=== PATIENT | male | born 2000 | race Caucasian/White ===

== ENCOUNTER 2023-10-28 19:52 | Emergency (ER) | payer BC, SELFPAY ==
[2023-10-28 20:16] VITALS: BP 109/75; PULSE 81; RESP 16; TEMP 36.1; O2SAT 98; BMI 27.0
--- NOTE | 2023-10-28 20:23 | ED_ITS ---
HPI - General Adult General Chief complaint: Animal Bite Stated complaint: scratch from a wild rabbit Time Seen by Provider: 10/28/23 20:23 Source: patient Mode of arrival: ambulatory Limitations: no limitations History of Present Illness HPI narrative: Patient is a 22 year old assigned female at , now non-binary, with no reported medical history presenting to the emergency department today with possible rabies exposure. Patient states that they found a rabbit that had been attacked by something and attempted to help it. They noticed that when they cleaned their hands of the rabbit blood, they had a small wound to the right dorsal hand that they are concerned got blood into it. Patient states that they are up to date on tetanus. Patient denies any dizziness, lightheadedness, abdominal pain, nausea, vomiting, fever, chills, blurry vision, double vision, loss of vision, chest pain, difficulty breathing, shortness of breath, back pain, night sweats, pain with urination, increased urinary frequency, increased urinary urgency, blood in their urine or stool, syncope or a near syncopal episode, bowel incontinence, bladder incontinence, bowel retention, bladder retention, or any other complaints at this time. Location: right and upper extremity Severity: mild Relieving factors: none Exacerbating factors: none Associated symptoms: denies other symptoms Treatments prior to arrival: none Related Data Previous Rx's ?Medication ?Instructions ?Recorded doxycycline hyclate 100 mg tablet 100 mg PO BID 7 days #14 tabs 10/28/23 Allergies Allergy/AdvReac Type Severity Reaction Status Date / Time Cephalosporins Allergy Hives Verified 10/28/23 20:17 Penicillins Allergy Hives Verified 10/28/23 20:17 Review of Systems 2 Constitutional: Constitutional: Reports no additional constitutional complaints, Denies chills, Denies fever(s) and Denies night sweats Eyes: Eyes: Reports no additional eye complaints, Denies blurry vision, Denies change in vision, Denies diplopia, Denies eye discharge, Denies loss of vision and Denies eye pain ENT: Denies dizziness Cardiovascular: Cardiovascular: Reports no additional cardiovascular complaints, Denies chest pain, Denies lightheadedness, Denies Loss of Consciousness and Denies dyspnea Respiratory: Respiratory: Reports no additional respiratory complaints and Denies dyspnea Gastrointestinal: Gastrointestinal: Reports no additional gastrointestinal complaints, Denies abdominal pain, Denies melena, Denies hematochezia, Denies change in bowel habits and Denies change in stool character Genitourinary: Genitourinary: Reports no additional male genitourinary complaints, Denies hematuria, Denies oliguria, Denies difficulty urinating, Denies dysuria, Denies urinary frequency, Denies urinary hesitancy, Denies urinary incontinence and Denies urinary urgency Musculoskeletal: Musculoskeletal: Reports no additional musculoskeletal complaints, Denies numbness and Denies tingling Comments: right dorsal hand wound Neurologic: Denies dizziness, Denies loss of vision, Denies numbness and Denies tingling Psychiatric: Psychiatric: Reports no additional psychiatric complaints Endocrine: Endocrine: Reports no additional endocrine complaints Hematologic/Lymphatic: Hematologic/Lymphatic: Reports no additional hematologic/lymphatic complaints Allergic/Immunologic: Allergic/Immunologic: Reports no additional allergic/immunologic complaints PMFSH Past Medical History Attestation statement: The following information was validated with the patient. Source: old records reviewed and nursing notes reviewed Social History Social History Advance Directives: No Advance Directives Information Provided: No Do you have a plan to hurt others: No Plan Physical Exam ED Vital Signs: Vital Signs - 24 hr 10/28/23 20:16 10/28/23 20:45 Temperature 97.0 F 97.8 F Pulse Rate 81 80 Respiratory Rate 16 18 Blood Pressure 109/75 110/76 Pulse Oximetry 98 98 Oxygen Delivery Method Room Air Room Air BMI result Body Mass Index 27.0 Const General: cooperative, no acute distress, alert and awake Nutritional Appearance: well nourished Orientation/consciousness: patient oriented x3 Limitations: no limitations [facility] Head: Yes normal to inspection and Yes atraumatic Ears: hearing grossly normal bilaterally and external ears normal General nose exam: Normal external nose present, no nasal discharge noted and no epistaxis Face and sinus: Yes normal facial exam, No abrasion and No laceration Mouth: Normal oral and palatal mucosa present, no drooling and no muffled voice Eyes General: appearance normal, both eyes and all related structures Periorbital: periorbital findings normal Eyelids: Yes eyelids normal Conjunctivae: conjunctivae normal Pupils: Equal, round and reactive pupils present EOM: EOMs intact bilaterally Neck Neck: Yes normal visual inspection, Yes full ROM and Yes no lymphadenopathy Chest Chest palpation & inspection: normal inspection of the chest Resp Effort & Inspection: normal respiratory effort and able to speak in complete sentences GI Inspection: Yes normal to inspection Neuro General: patient oriented x3 and moves all extremities Cranial nerves: Yes Equal, round and reactive pupils present Cognition (Neuro): normal cognition Motor exam (neuro): 5/5 motor strength present throughout Sensory Exam: Normal double simultaneous stimulation for sensation Coordination: [id number] test normal Extrem General: Yes full ROM and Yes capillary refill normal Hand/finger images: 2 1. small wound present - no active bleeding, no gaping Psych Appearance: grossly normal Mental Status: mental status grossly normal Affect: normal affect Attitude: cooperative Thought process: Normal thought process present Thought content: Normal thought content present Insight: Good insight present (Psych) Medical Decision Making Medical Decision Making MDM Narrative: Patient is a 22 year old assigned female at , now non-binary, with no reported medical history presenting to the emergency department today with possible rabies exposure and a wound to the right hand. Patient's physical exam was as noted in the physical exam portion of this note. Given patient's open wound exposure to blood from a wild animal, will cover for rabies. I explained my physical exam findings as well as all test results to the patient. I answered all questions asked by the patient. I stressed the importance of the patient taking their medication as prescribed. I stressed the importance of the patient following up with their primary care provider. I stressed the importance of the patient returning to the emergency department immediately if their symptoms were to worsen or if they were to develop any dizziness, shortness of breath, difficulty breathing, chest pain, blurry vision, loss of vision, nausea, vomiting, abdominal pain, fever, chills, back pain, or any other complaints. Patient verbalized agreement and understanding with this treatment plan and discharge. Differential Diagnosis Differential Diagnoses: The differential diagnosis associated with the presentation includes Right hand wound Exposure to rabies Animal wound Animal scratch Admission/Observation Consideration of admission/observation: Escalation of care including admission/observation considered Patient would have been admitted to the hospital had their work up had any findings where hospital admission was appropriate and their clinical presentation warranted hospital admission. Discharge Plan Discharge Clinical Impression: Exposure to rabies, Animal scratch Patient Disposition: Home, Self-Care Instructions: Rabies (ED) Additional Instructions: Please consider using gloves when handling wild life in the future. Take your antibiotic as prescribed. Do NOT go into direct sunlight while on the Doxycycline (antibiotic). Follow up with your primary care provider. Return to the emergency department immediately if your symptoms worsen or if you develop any dizziness, shortness of breath, difficulty breathing, chest pain, blurry vision, loss of vision, nausea, vomiting, abdominal pain, fever, chills, back pain, or any other complaints. Call Medical Day Stay tomorrow at [phone] to schedule an appointment to receive the remainder of your required Rabies Vaccines. You will need a total of 3 more injections. Bring the Rabies Vaccine Order Set sheet and your Rabies Vaccination Record with you to these appointments. If the day you are supposed to come back for the rabies vaccine falls on a weekend or a holiday, proceed to the Emergency Department to receive the required vaccination. Follow up with your primary care provider after completion of the vaccine to have a titer drawn to ensure the vaccines effectiveness. Prescriptions: New doxycycline hyclate 100 mg tablet 100 mg PO BID 7 Days Qty: 14 0RF Referrals: [facility] [place] [facility] [place]] (Call to establish and follow up with a primary care provider. If you already have a primary care provider, please follow up with them.) [facility] [place] [facility] [Provider Group] [facility] [place] [facility] [Provider Group] Stand Alone Forms: Work/School Release Print Language: Moldovan
[2023-10-28 20:45] VITALS: BP 110/76; PULSE 80; RESP 18; TEMP 36.6; O2SAT 98
[2023-10-28] MEDS: Rabies Immune Globulin/PF 900 UNIT/3 ML VIAL 1660 UNIT IM (21:12)
[2023-10-28] MEDS: Rabies Vaccine, Human Diploid (Imovax) 1 ML VIAL IM (21:13)
[2023-10-28 21:50] VITALS: BP 110/76; PULSE 80; RESP 18; TEMP 36.6; O2SAT 98
== END 2023-10-28 21:50 | disposition home or self-care (01) ==
PROVIDERS: Emergency Provider Internal Medicine
DX: S60.511A Abrasion of right hand, initial encounter (principal); Z20.3 Contact with and (suspected) exposure to rabies; Z29.14 Encounter for prophylactic rabies immune globulin; W55.89XA Other contact with other mammals, initial encounter; Y93.9 Activity, unspecified; Y92.9 Unspecified place or not applicable; Y99.9 Unspecified external cause status
CPT/HCPCS: 90375; 90471; 90675; 96372; 99284

== ENCOUNTER 2023-11-12 14:00 | Outpatient (RCR) | payer BC, SELFPAY ==
[2023-10-31 14:14] VITALS: BP 109/64; PULSE 84; RESP 16; TEMP 37.1; O2SAT 97; BMI 27.0
[2023-10-31] MEDS: Rabies Vaccine, Human Diploid (Imovax) 1 ML VIAL IM (14:26)
[2023-11-05 13:56] VITALS: BP 113/78; PULSE 80; RESP 16; TEMP 36.6; O2SAT 99
[2023-11-05] MEDS: Rabies Vaccine, Human Diploid (Imovax) 1 ML VIAL IM (14:02)
[2023-11-12 14:19] VITALS: BP 115/64; PULSE 80; RESP 16; TEMP 36.6; O2SAT 97
[2023-11-12] MEDS: Rabies Vaccine, Human Diploid (Imovax) 1 ML VIAL IM (14:20)
== END 2023-11-12 15:07 | disposition home or self-care (01) ==
LOC: HO.INF 14:00
PROVIDERS: Visit Provider Physician Assistant Medical
DX: Z20.3 Contact with and (suspected) exposure to rabies (principal)
CPT/HCPCS: 90471; 90675; 96372

== ENCOUNTER 2023-11-22 21:51 | Emergency (ER) | payer BC, SELFPAY ==
[2023-11-22 22:13] VITALS: BP 122/81; PULSE 87; RESP 16; TEMP 36.8; O2SAT 96; BMI 26.0
--- NOTE | 2023-11-22 23:17 | ED.SKABFB ---
HPI - Skin/Abscess/Foreign Bdy General Chief complaint: Skin/Abscess/Foreign Body Stated complaint: tick bite Time Seen by Provider: 11/22/23 23:10 Source: patient Mode of arrival: ambulatory Limitations: no limitations History of Present Illness ED Provider: Mattie Tejeda PA-C HPI narrative: 22-year-old male presents the ER for evaluation of a tick bite on the right inner thigh that he noticed 4 days ago. Today patient developed a bull's-eye rash around it prompting ER evaluation. Patient states when they woke up on Sunday is when they noted the tick, unknown duration that the tick was on the patient's leg for. Denies any fever or chills. He reports nausea and some dizziness today. MD complaint: rash and insect bite/sting Onset (ago): hour(s) Tetanus up to date: no Location: [facility] Severity: mild Quality: burning Pain Consistency: intermittent Relieving factors: none Exacerbating factors: none Associated symptoms: nausea Treatments prior to arrival: none Related Data Previous Rx's ?Medication ?Instructions ?Recorded doxycycline hyclate 100 mg tablet 100 mg PO BID 7 days #14 tabs 10/28/23 doxycycline hyclate 100 mg capsule 100 mg PO BID 14 days #28 caps 11/22/23 Allergies Allergy/AdvReac Type Severity Reaction Status Date / Time Cephalosporins Allergy Hives Verified 11/22/23 22:15 Penicillins Allergy Hives Verified 11/22/23 22:15 Review of Systems Review of Systems: Yes all other systems are reviewed and are negative PMFSH Social History Social History Alcohol intake: never Smoked in Last 30 Days: No Use of substances other than those prescribed or required for medical reasons: No Advance Directives: No Advance Directives Information Provided: No Do you have a plan to hurt others: No Plan Physical Exam Vital Signs: Vital Signs: Last Vital Signs Temp 98.2 F 11/22/23 23:56 Pulse 80 11/22/23 23:56 Resp 16 11/22/23 23:56 BP 115/68 11/22/23 23:56 Pulse Ox 98 11/22/23 23:56 O2 Del Method Room Air 11/22/23 23:56 BMI result Body Mass Index 26.0 Appearance: Alert. Oriented X3. No acute distress. HEENT: normal inspection CVS: Normal heart rate and rhythm. Pulses normal. Respiratory: No respiratory distress. Skin: Skin warm and dry. Normal skin color. Normal skin turgor. No rashes. Extremities: Distal right inner thigh with a 2 cm bull's-eye rash with a small central bite jack Neuro: Oriented X 3. grossly normal, nonfocal Medications Administered Discontinued Medications Generic Name Dose Route Start Last Admin Trade Name Freq PRN Reason Stop Dose Admin Doxycycline Monohydrate 100 mg 11/22/23 23:14 11/22/23 23:36 Doxycycline Monohydrate 100 Mg Capsule PO 11/22/23 23:15 100 mg ONCE ONE Administration Medical Decision Making Medical Decision Making MDM Narrative: 22-year-old male presents the ER for evaluation of a tick bite with a bull's-eye rash consistent with erythema migrans rash. Tick bite was 4 days ago and bull's-eye rash started today. Will start patient on 2 week course of doxycycline. Patient counseled on diagnosis of early Lyme disease as well as side effects of doxycycline. Encouraged follow-up with primary care doctor. Stable for discharge home. Differential Diagnosis Differential Diagnoses: The differential diagnosis associated with the presentation includes early lyme disease, late lyme disease, contact dermatitis, bee sting External Record Review External record reviewed: Outpatient record and Prior outpatient labs Tests considered The following testing was considered but not selected: tick-borne illness testing Prescription Management I considered prescription management with: Antibiotic Critical Care Time Critical Care Time Critical Care Time: No Discharge Plan Discharge Clinical Impression: Erythema migrans (Lyme disease) Patient Disposition: Home, Self-Care Instructions: Lyme Disease (ED) Additional Instructions: Take the prescribed antibiotics as directed, complete the entire course and do not miss any doses Limit sun exposure while on doxycycline, sun while on this antibiotic can cause a rash Follow up with your doctor If you develop new or worsening symptoms call 911 or come back to the ER for further evaluation. Prescriptions: New doxycycline hyclate 100 mg capsule 100 mg PO BID 14 Days Qty: 28 0RF No Action doxycycline hyclate 100 mg tablet 100 mg PO BID 7 Days Qty: 14 0RF Interventions: ED Discharge Assessment Last Done: 11/22/23 23:56 Discharge Date/Time: 11/22/23 23:58 Print Language: French
[2023-11-22 23:36] VITALS: BP 115/68; PULSE 80; RESP 16; TEMP 36.8; O2SAT 98
[2023-11-22] MEDS: Doxycycline Monohydrate 100 MG CAPSULE PO (23:36)
[2023-11-22 23:56] VITALS: BP 115/68; PULSE 80; RESP 16; TEMP 36.8; O2SAT 98
== END 2023-11-22 23:58 | disposition home or self-care (01) ==
PROVIDERS: Emergency Provider Emergency Medicine
DX: S70.361A Insect bite (nonvenomous), right thigh, initial encounter (principal); W57.XXXA Bitten or stung by nonvenomous insect and other nonvenomous arthropods, initial encounter; Y93.9 Activity, unspecified; Y92.9 Unspecified place or not applicable; Y99.9 Unspecified external cause status
CPT/HCPCS: 99283; 99284